=== PATIENT | female | born 1995 | race Caucasian/White ===

== ENCOUNTER 2023-06-23 08:57 | Outpatient (CLI) | payer BC ==
[~2023-06-23 08:57] MED LIST: Magnevist 469MG/ML 20 ML VIAL ONE
== END 2023-06-23 08:58 | disposition home or self-care (01) ==
LOC: CSHMRI 08:57
PROVIDERS: ATTEND Emergency Medicine Emergency Medical Services
DX: R42 Dizziness and giddiness (principal); H93.19 Tinnitus, unspecified ear
CPT/HCPCS: 70553